=== PATIENT | female | born 1950 | race Caucasian/White ===

== ENCOUNTER 2021-02-28 15:14 | Emergency (ER) | payer OTHER ==
[~2021-02-28] VITALS: Ht 154.9 cm; Wt 61.7 kg
[2021-02-28] MEDS ORDERED: ECOTRIN81 MG (16:29)
[2021-02-28] MEDS ORDERED: COZAAR25 MG (16:29)
[2021-02-28] MEDS ORDERED: INDERAL LA80 MG (16:29)
== END 2021-02-28 18:07 | disposition home or self-care (01) ==
LOC: ER 15:14 → EDBD 15:19 → ER 18:07
DX: N20.0 Calculus of kidney (principal)